=== PATIENT | female | born 1980 | race Caucasian/White ===

== ENCOUNTER 2016-05-24 08:36 | Emergency (ER) | payer MEDICAID ==
[2016-05-24 08:40] VITALS: BP 133/85; PULSE 98; RESP 18; TEMP 98.3; O2SAT 100
[2016-05-24] MEDS ORDERED: Sodium Chloride 0.9% 1,000 ML IV STA (09:03)
[2016-05-24] MEDS ORDERED: Sodium Chloride 0.9% 1,000 ML ONE (09:11)
[2016-05-24 09:30] LABS: RBC URINE 5 /hpf (0-3); URINE BILIRUBIN NEGATIVE (NEGATIVE); URINE BLOOD 2+ (NEGATIVE); URINE COLOR Yellow (YELLOW); URINE GLUCOSE (UA) NORMAL (Normal); URINE KETONE NEGATIVE (NEGATIVE); URINE LEUKOCYTE ESTERASE NEG Leu/uL (Negative); URINE PROTEIN 1+ mg/dL (NEGATIVE); WBC URINE 3 /hpf (0-5)
[2016-05-24 09:41] LABS: BASO % 0.5 % (0.0-2.0); EOS # 0.1 K/uL (0.0-0.7); EOS % 1.9 % (0.0-4.0); HEMATOCRIT 38.1 % (34.0-47.0); LYMPH # 1.3 K/uL (1.0-4.3); LYMPH % 22.7 % (20.0-40.0); MEAN CELL VOLUME 82.3 fL (81.0-99.0); MEAN CORPUSCULAR HEMOGLOBIN 26.9 pg (27.0-31.0); MEAN CORPUSCULAR HGB CONC 32.7 g/dL (33.0-37.0); MEAN PLATELET VOLUME 8.9 fL (7.2-11.7); MONO # 0.3 K/uL (0.0-0.8); MONO % 5.9 % (0.0-10.0); RED CELL DISTRIBUTION WIDTH 13.1 % (11.5-14.5); WHITE BLOOD COUNT 5.8 K/uL (4.8-10.8)
[2016-05-24 09:44] LABS: CHLORIDE 100 mmol/L (98-107)
[2016-05-24 09:45] LABS: SODIUM 140 mmol/L (132-148)
[2016-05-24 09:47] LABS: ALB/GLOB RATIO 1.2 (1.0-2.1); ALKALINE PHOSPHATASE 43 U/L (38-126); ALT/SGPT 17 U/L (9-52); AST/SGOT 19 U/L (14-36); BILIRUBIN,TOTAL 0.7 mg/dL (0.2-1.3); BLOOD UREA NITROGEN 4 mg/dL (7-17); CALCIUM 8.6 mg/dl (8.6-10.4); CARBON DIOXIDE 23 mmol/L (22-30); GFR AFRICAN-AMERICAN > 60; GLUCOSE,RANDOM 91 mg/dL (65-105)
[2016-05-24 09:59] LABS: POTASSIUM 3.7 mmol/L (3.6-5.2)
--- NOTE | 2016-05-24 11:01 | US ---
HISTORY: vaginal bleeding, ? COMPARISON: None available. TECHNIQUE: Transabdominal and endovaginal ultrasound examination of the pelvis was performed. FINDINGS: LMP: 03/03/2016 UTERUS: Measures 11.1 x 6 x 7.1 cm. Normal in size and appearance. No fibroid or other mass lesion seen. ENDOMETRIUM: There is cystic structure in the endometrial cavity measures 1.7 x 0.8 x 1.6 centimeters with NST 1.34 which corresponding to gestational age of 5 weeks 4 days. No pole or yolk sac seen in this study. CERVIX: No cervical abnormality identified. RIGHT OVARY: Measures 2.9 x 2 x 2.4 cm. No solid mass. Normal flow. LEFT OVARY: Measures 3.7 x 2.7 x 4.1 cm. No solid mass. Normal flow. There is a small cyst seen at the there if the ovary measures 3 x 2.1 x 2.4 centimeter. FREE FLUID: No significant free fluid noted. OTHER FINDINGS: None. IMPRESSION: Cystic structure in the endometrium may represent gestational sac. No evidence of pole or yolk sac. Continuous follow-up reassessment is recommended. Small cyst seen at the left ovary measures 3 centimeter.
--- NOTE | 2016-05-24 11:32 | C.PDOC ---
Time Seen by Provider: 05/24/16 09:00 Chief Complaint (Nursing): Female Genitourinary Past Medical History Vital Signs: Last Vital Signs Temp 98.3 F 05/24/16 08:37 Pulse 98 H 05/24/16 08:37 Resp 18 05/24/16 08:37 BP 133/85 05/24/16 08:37 Pulse Ox 100 05/24/16 08:37 - Medical History PMH: Asthma, HTN (During ), Migraine - Social History Hx Tobacco Use: Yes Hx Alcohol Use: Yes Hx Substance Use: No - Immunization History Hx Tetanus Toxoid Vaccination: No Hx Influenza Vaccination: No Hx Pneumococcal Vaccination: No ED Course And Treatment - Laboratory Results Result Diagrams: 05/24/16 09:30 05/24/16 09:30 O2 Sat by Pulse Oximetry: 100 Disposition - Disposition Disposition: HOME/ ROUTINE Disposition Time: 11:29 Condition: STABLE Additional Instructions: Follow up with your OBGYN within 1-2 days. Return to ED if feel worse. Return to ED in 2-3 days to repeat beta HCG and to repeat pelvic US. Prescriptions: Vits #93/Iron Fum/FA [ Formula Tablet] 1 each PO DAILY #30 tablet Instructions: Threatened Miscarriage (ED) - Clinical Impression Clinical Impression: Threatened in early
--- NOTE | 2016-05-24 11:33 | C.PDOC ---
History Of Present Illness 35 year old female presents to the ED with complaints of vaginal spotting and lower abdominal cramping since 03:00. Patient states her LMP was 3 months ago and notes her period is irregular. She took a test at home which was positive and denies vomiting, urinary symptoms, back pain, or any other complaints at this time. Time Seen by Provider: 05/24/16 09:00 Chief Complaint (Nursing): Female Genitourinary History Per: Patient History/Exam Limitations: no limitations Onset/Duration Of Symptoms: Hrs Current Symptoms Are (Timing): Still Present Severity: Mild Quality Of Discomfort: Cramping Associated Symptoms: denies: Fever, Chills, Nausea, Vomiting, Diarrhea, Back Pain, Urinary Symptoms Abnormal Vaginal Bleeding: Yes Past Medical History Reviewed: Historical Data, Nursing Documentation, Vital Signs Vital Signs: Last Vital Signs Temp 98.3 F 05/24/16 08:37 Pulse 98 H 05/24/16 08:37 Resp 18 05/24/16 08:37 BP 133/85 05/24/16 08:37 Pulse Ox 100 05/24/16 11:39 - Medical History PMH: Asthma, HTN (During ), Migraine Family History: States: Unknown Family Hx - Social History Hx Tobacco Use: Yes Hx Alcohol Use: Yes Hx Substance Use: No - Immunization History Hx Tetanus Toxoid Vaccination: No Hx Influenza Vaccination: No Hx Pneumococcal Vaccination: No Review Of Systems Except As Marked, All Systems Reviewed And Found Negative. Constitutional: Negative for: Fever, Chills Gastrointestinal: Positive for: Abdominal Pain. Negative for: Vomiting, Diarrhea Genitourinary: Positive for: Vaginal Bleeding. Negative for: Dysuria, Frequency Musculoskeletal: Negative for: Back Pain Physical Exam - Physical Exam Appears: Non-toxic, No Acute Distress Skin: Normal Color, Warm, Dry Head: Atraumatic, Normacephalic Eye(s): bilateral: Normal Inspection Oral Mucosa: Moist Chest: Symmetrical, No Deformity Cardiovascular: Rhythm Regular, No Murmur Respiratory: Normal Breath Sounds, No Accessory Muscle Use, No Rales, No Rhonchi , No Wheezing Gastrointestinal/Abdominal: Soft, Tenderness (+Suprapubic tenderness slightly greater to the right), No Distention, No Guarding, No Rebound Extremity: Normal ROM, No Deformity Neurological/Psych: Oriented x3, Normal Speech, Normal Cognition ED Course And Treatment - Laboratory Results Result Diagrams: 05/24/16 09:30 05/24/16 09:30 O2 Sat by Pulse Oximetry: 100 (Room air) Pulse Ox Interpretation: Normal - CT Scan/US Preg 1st Trimester US Other Rad Studies (CT/US): Read By Radiologist, Radiology Report Reviewed CT/US Interpretation: Accession No. : [id number]. Patient Name / ID : NIKHIL LEVY / [id number]. Exam Date : 05/24/2016 09:36:14 ( Approved ). Study Comment : Sex / Age : F / 35Y. Creator : Amy Otero. Dictator : Amy Otero. Lending Advisor : [employer] Attendant : Amy Otero. Approver2 : Report Date : 05/24/2016 10:59:09. My Comment : . HISTORY: vaginal bleeding, ? . COMPARISON: None available. TECHNIQUE: Transabdominal and endovaginal ultrasound examination of the pelvis was performed. FINDINGS: LMP: 03/03/2016. UTERUS: Measures 11.1 x 6 x 7.1 cm. Normal in size and appearance. No fibroid or other mass lesion seen. ENDOMETRIUM: There is cystic structure in the endometrial cavity measures 1.7 x 0.8 x 1.6 centimeters with NST 1.34 which corresponding to gestational age of 5 weeks 4 days. No pole or yolk sac seen in this study. CERVIX: No cervical abnormality identified. RIGHT OVARY: Measures 2.9 x 2 x 2.4 cm. No solid mass. Normal flow. LEFT OVARY: Measures 3.7 x 2.7 x 4.1 cm. No solid mass. Normal flow. There is a small cyst seen at the there if the ovary measures 3 x 2.1 x 2.4 centimeter. FREE FLUID: No significant free fluid noted. OTHER FINDINGS: None. IMPRESSION: Cystic structure in the endometrium may represent gestational sac. No evidence of pole or yolk sac. Continuous follow-up reassessment is recommended. Small cyst seen at the left ovary measures 3 centimeter. Progress Note: 1st Trimester US, Blood work, and Urinalysis ordered and reviewed. Patient treated with IV fluids. Results discussed with patient. Rx given and patient advised to follow up with her [employer]. Disposition - Disposition Disposition: HOME/ ROUTINE Disposition Time: 11:29 Condition: STABLE Additional Instructions: Follow up with your OBGYN within 1-2 days. Return to ED if feel worse. Return to ED in 2-3 days to repeat beta HCG and to repeat pelvic US. Prescriptions: Vits #93/Iron Fum/FA [ Formula Tablet] 1 each PO DAILY #30 tablet Instructions: Threatened Miscarriage (ED) - Clinical Impression Clinical Impression: Threatened in early - PA / VISUAL LEAD / Resident Statement MD/DO has reviewed & agrees with the documentation as recorded. - Scribe Statement The provider has reviewed the documentation as recorded by the Scribe Hugo Babcock. All medical record entries made by the Scribe were at my direction and personally dictated by me. I have reviewed the chart and agree that the record accurately reflects my personal performance of the history, physical exam, medical decision making, and the department course for this patient. I have also personally directed, reviewed, and agree with the discharge instructions and disposition.
== END 2016-05-24 11:52 | disposition home or self-care (01) ==
LOC: C.ER 08:36
DX: O20.0 Threatened abortion (principal); Z3A.01 Less than 8 weeks gestation of pregnancy

== ENCOUNTER 2016-06-16 16:15 | Emergency (ER) | payer MEDICAID ==
[2016-06-16 16:24] VITALS: RESP 18; O2SAT 100
[2016-06-16] MEDS ORDERED: Sodium Chloride 0.9% 1,000 ML IV ONE (16:37)
[2016-06-16 17:14] LABS: BASO # 0.1 K/uL (0.0-0.2); BASO % 0.6 % (0.0-2.0); EOS # 0.2 K/uL (0.0-0.7); EOS % 1.8 % (0.0-4.0); HEMATOCRIT 37.5 % (34.0-47.0); LYMPH # 1.8 K/uL (1.0-4.3); LYMPH % 19.5 % (20.0-40.0); MEAN CELL VOLUME 82.5 fL (81.0-99.0); MEAN CORPUSCULAR HEMOGLOBIN 26.6 pg (27.0-31.0); MEAN CORPUSCULAR HGB CONC 32.3 g/dL (33.0-37.0); MEAN PLATELET VOLUME 9.2 fL (7.2-11.7); MONO # 0.5 K/uL (0.0-0.8); MONO % 5.1 % (0.0-10.0); RED CELL DISTRIBUTION WIDTH 12.9 % (11.5-14.5); WHITE BLOOD COUNT 9.2 K/uL (4.8-10.8)
[2016-06-16 17:20] LABS: RBC URINE 570 /hpf (0-3); URINE BACTERIA FEW (<OCC); URINE BILIRUBIN NEGATIVE (NEGATIVE); URINE BLOOD 3+ (NEGATIVE); URINE GLUCOSE (UA) NORMAL (Normal); URINE KETONE TRACE mg/dL (NEGATIVE); URINE LEUKOCYTE ESTERASE 1+ Leu/uL (Negative); URINE PROTEIN 2+ mg/dL (NEGATIVE); WBC URINE 41 /hpf (0-5)
[2016-06-16 17:21] LABS: CHLORIDE 103 mmol/L (98-107); URINE COLOR YELLOW (YELLOW)
[2016-06-16 17:22] LABS: POTASSIUM 3.7 mmol/L (3.6-5.2); SODIUM 141 mmol/L (132-148)
[2016-06-16 17:24] LABS: ALB/GLOB RATIO 1.3 (1.0-2.1); BILIRUBIN,TOTAL 0.5 mg/dL (0.2-1.3); CARBON DIOXIDE 25 mmol/L (22-30); GFR AFRICAN-AMERICAN > 60; TOTAL PROTEIN 7.9 g/dL (6.3-8.3)
[2016-06-16 17:25] LABS: ALKALINE PHOSPHATASE 47 U/L (38-126); ALT/SGPT 9 U/L (9-52); AST/SGOT 19 U/L (14-36); BLOOD UREA NITROGEN 10 mg/dL (7-17); CALCIUM 8.6 mg/dl (8.6-10.4); GLUCOSE,RANDOM 107 mg/dL (65-105)
--- NOTE | 2016-06-16 17:51 | C.PDOC ---
History Of Present Illness 35 year old female, P:2 (as per her currently 12 weeks ,), presents to the ED with complaints of abdominal/pelvic cramping and vaginal bleeding starting earlier today. Patient states she also has a headache. She denies nausea, vomiting, diarrhea, dysuria, fever/chills, back pain. Time Seen by Provider: 06/16/16 16:33 Chief Complaint (Nursing): Female Genitourinary History Per: Patient History/Exam Limitations: no limitations Onset/Duration Of Symptoms: Hrs Current Symptoms Are (Timing): Still Present Severity: Mild Quality Of Discomfort: Cramping Associated Symptoms: denies: Fever, Chills, Nausea, Vomiting, Back Pain Abnormal Vaginal Bleeding: Yes Past Medical History Reviewed: Historical Data, Nursing Documentation, Vital Signs Vital Signs: Last Vital Signs Temp 98.1 F 06/16/16 16:20 Pulse 83 06/16/16 16:20 Resp 18 06/16/16 16:20 BP 120/84 06/16/16 16:20 Pulse Ox 100 06/16/16 18:54 - Medical History PMH: Asthma, HTN (During ), Migraine Family History: States: No Known Family Hx - Social History Hx Tobacco Use: Yes Hx Alcohol Use: Yes Hx Substance Use: No - Immunization History Hx Tetanus Toxoid Vaccination: No Hx Influenza Vaccination: No Hx Pneumococcal Vaccination: No Review Of Systems Except As Marked, All Systems Reviewed And Found Negative. Constitutional: Negative for: Fever, Chills Cardiovascular: Negative for: Chest Pain, Palpitations Respiratory: Negative for: Cough, Shortness of Breath Gastrointestinal: Positive for: Abdominal Pain (+Abdominal cramping). Negative for: Nausea, Vomiting, Diarrhea Genitourinary: Positive for: Vaginal Bleeding Neurological: Positive for: Headache Physical Exam - Physical Exam Appears: Well, Non-toxic, No Acute Distress Skin: Normal Color, Warm, Dry Head: Normacephalic Eye(s): bilateral: Normal Inspection Oral Mucosa: Moist Neck: Supple Cardiovascular: Rhythm Regular Respiratory: Normal Breath Sounds, No Accessory Muscle Use, No Rales, No Rhonchi , No Wheezing Gastrointestinal/Abdominal: Bowel Sounds, Soft, Tenderness (+Mild suprapubic TTP , (-) McBurney's), No Distention, No Guarding, No Rebound Back: No CVA Tenderness Extremity: Normal ROM, No Pedal Edema, No Deformity Neurological/Psych: Oriented x3 ED Course And Treatment - Laboratory Results Result Diagrams: 06/16/16 17:10 06/16/16 17:10 O2 Sat by Pulse Oximetry: 100 (Room air) Pulse Ox Interpretation: Normal Progress Note: OB Transvaginal US, Blood work, and Urinalysis ordered and reviewed. Patient given IV NS bolus, and requested Tylenol (PO given). Blood type A+, no rhogham needed. Disposition - Disposition Disposition Time: 18:00 Condition: STABLE - Clinical Impression Clinical Impression: Vaginal bleeding in - Scribe Statement The provider has reviewed the documentation as recorded by the Scribe Hugo Babcock. Provider Attestation: All medical record entries made by the Scribe were at my direction and personally dictated by me. I have reviewed the chart and agree that the record accurately reflects my personal performance of the history, physical exam, medical decision making, and the department course for this patient. I have also personally directed, reviewed, and agree with the discharge instructions and disposition. Physician Patient Turnover Patient Signed Over To: Chan Oropeza Handoff Comments: Pending reassessment, ultrasound results
[2016-06-16 19:34] VITALS: BP 112/78; PULSE 71; TEMP 98.4
--- NOTE | 2016-06-17 08:43 | US ---
Pelvic ultrasound History: Vaginal bleeding, . Comparison: Comparison is made to prior ultrasound from 05/24/2016. Technique: Transvaginal and transabdominal ultrasonography of the pelvis. Findings: The uterus is anteverted and measures approximately 10 x 5.2 x 5.6 centimeters. No intrauterine gestational sac identified. Extremely heterogeneous endometrium. The endometrium measures approximately 0.89 centimeters. The cervix appears closed and measures approximately 3.7 centimeters. The endometrium is heterogeneous and demonstrates vascular flow. No significant free fluid in the cul-de-sac. The right ovary measures 3.2 x 2.2 x 2.6 centimeters. The left ovary measures 3.5 x 2.4 x 3.2 centimeters. Prominent follicle versus cyst measuring 1.8 centimeters on the left. Doppler flow seen in both ovaries. Impression: No intrauterine gestational sac identified. Lower uterine segment/cervical heterogeneity could represent blood products. In the setting of positive beta HCG, differential diagnosis of versus retained products of conception should be considered. Close interval followup ultrasonography recommended. Follow-up with beta HCG levels also recommended. Please note that this report is in general agreement with the preliminary report provided by [facility].
== END 2016-06-16 19:36 | disposition home or self-care (01) ==
LOC: C.ER 16:15
DX: O20.8 Other hemorrhage in early pregnancy (principal); Z3A.12 12 weeks gestation of pregnancy
CPT/HCPCS: 76830; 76856; 80053; 81001; 84702; 85025; 86850; 86900; 87086; 96360; 99285; J7040

== ENCOUNTER 2016-10-07 14:55 | Emergency (ER) | payer MEDICAID ==
[2016-10-07 15:03] VITALS: RESP 18; TEMP 99.2
[2016-10-07] MEDS ORDERED: Sodium Chloride 0.9% 1,000 ML IV STA (16:48)
[2016-10-07] MEDS ORDERED: Morphine 4 MG/ML VIAL ONE (17:15)
[2016-10-07] MEDS ORDERED: Sodium Chloride 0.9% 1,000 ML ONE (17:16)
[2016-10-07 17:20] LABS: BASO # 0.1 K/uL (0.0-0.2); BASO % 0.8 % (0.0-2.0); EOS # 0.1 K/uL (0.0-0.7); HEMATOCRIT 37.3 % (34.0-47.0); LYMPH # 1.7 K/uL (1.0-4.3); LYMPH % 17.4 % (20.0-40.0); MEAN CELL VOLUME 83.4 fL (81.0-99.0); MEAN CORPUSCULAR HGB CONC 33.6 g/dL (33.0-37.0); MEAN PLATELET VOLUME 8.7 fL (7.2-11.7); MONO # 0.5 K/uL (0.0-0.8); MONO % 5.4 % (0.0-10.0); NRBC % 0.1 % (0.0-2.0); RED CELL DISTRIBUTION WIDTH 13.9 % (11.5-14.5); WHITE BLOOD COUNT 9.7 K/uL (4.8-10.8)
[2016-10-07 17:28] LABS: CHLORIDE 104 mmol/L (98-107); RBC URINE 1 /hpf (0-3); SODIUM 134 mmol/L (132-148); URINE BACTERIA RARE (<OCC); URINE BILIRUBIN NEGATIVE (NEGATIVE); URINE BLOOD NEGATIVE (NEGATIVE); URINE COLOR Yellow (YELLOW); URINE GLUCOSE (UA) NORMAL (Normal); URINE KETONE NEGATIVE (NEGATIVE); URINE LEUKOCYTE ESTERASE NEG Leu/uL (Negative); URINE PROTEIN NEGATIVE (NEGATIVE); URINE UROBILINOGEN NORMAL mg/dL (0.2-1.0)
[2016-10-07 17:29] LABS: POTASSIUM 3.6 mmol/L (3.6-5.2)
[2016-10-07 17:31] LABS: ALB/GLOB RATIO 1.1 (1.0-2.1); ALKALINE PHOSPHATASE 42 U/L (38-126); AST/SGOT 20 U/L (14-36); BILIRUBIN,TOTAL 0.5 mg/dL (0.2-1.3); BLOOD UREA NITROGEN 5 mg/dL (7-17); CARBON DIOXIDE 19 mmol/L (22-30); GFR AFRICAN-AMERICAN > 60; TOTAL PROTEIN 7.6 g/dL (6.3-8.3)
[2016-10-07 17:32] LABS: ALT/SGPT 26 U/L (9-52); CALCIUM 8.8 mg/dl (8.6-10.4); GLUCOSE,RANDOM 73 mg/dL (65-105)
--- NOTE | 2016-10-07 18:04 | US ---
OB , limited Comparison: Pelvis/transvaginal ultrasound performed 06/16/16 Technique: Real-time ultrasound was performed through the pelvis. Findings: There is a single living fetus in cephalic presentation. Anterior placenta. The placenta is not previa. There are no adnexal masses or cysts evident. Cervix length measures approximately 3.1 cm. Measurements and calculations: Fetus has a composite sonographic age of 15 weeks 3 days. This calculation is based on the biparietal diameter, head circumference, abdominal circumference, and femur length. Estimated heart rate 127.8 beats per min. Impression: Single living fetus with a composite sonographic age of 15 weeks 3 days. Estimated heart rate 127.8 beats per min. Advise an anomaly screen at 16-18 weeks gestational age.
--- NOTE | 2016-10-07 18:34 | C.PDOC ---
History Of Present Illness 36 y/o female 17 weeks presents to ED with complaints of headache for 3 -4 days and pelvic cramping with associated vaginal bleeding for 3 days. Patient states the headache is similar to recurrent migraines that normally resolved with Tylenol but today didn't which prompted visit to ED today. Patient reports she had previous vaginal bleeding and was seen at another ER where an ultrasound was done that showed no abnormalities and bleeding stopped spontaneously but recurred 3 days ago. Patient denies nausea, vomiting, diarrhea , back pain, urinary symptoms, injury or any other complaints at this time. Time Seen by Provider: 10/07/16 16:22 Chief Complaint (Nursing): Female Genitourinary History Per: Patient History/Exam Limitations: no limitations Onset/Duration Of Symptoms: Days Current Symptoms Are (Timing): Still Present Quality Of Discomfort: Cramping Past Medical History Reviewed: Historical Data, Nursing Documentation, Vital Signs Vital Signs: Last Vital Signs Temp 99.2 F 10/07/16 15:00 Pulse 80 10/07/16 18:42 Resp 18 10/07/16 18:42 BP 113/73 10/07/16 18:42 Pulse Ox 99 10/07/16 18:44 - Medical History PMH: Asthma, HTN (During ), Migraine Family History: States: Unknown Family Hx - Social History Hx Tobacco Use: Yes Hx Alcohol Use: Yes Hx Substance Use: No - Immunization History Hx Tetanus Toxoid Vaccination: No Hx Influenza Vaccination: No Hx Pneumococcal Vaccination: No Review Of Systems Except As Marked, All Systems Reviewed And Found Negative. Constitutional: Negative for: Fever, Chills Gastrointestinal: Negative for: Nausea, Vomiting, Diarrhea Genitourinary: Positive for: Vaginal Bleeding, Pelvic Pain. Negative for: Dysuria, Frequency Musculoskeletal: Negative for: Back Pain Skin: Negative for: Rash Neurological: Positive for: Headache. Negative for: Weakness, Numbness Physical Exam - Physical Exam Appears: Non-toxic, No Acute Distress Skin: Normal Color, Warm, Dry, No Rash Head: Atraumatic, Normacephalic Eye(s): bilateral: Normal Inspection Oral Mucosa: Moist Neck: Normal ROM, Supple Chest: Symmetrical Cardiovascular: Rhythm Regular Respiratory: Normal Breath Sounds, No Rales, No Rhonchi, No Wheezing Gastrointestinal/Abdominal: Tenderness (To suprapubic area), No Guarding, No Rebound Extremity: Normal ROM, Capillary Refill (<2 seconds) Neurological/Psych: Oriented x3, Normal Speech ED Course And Treatment - Laboratory Results Result Diagrams: 10/07/16 17:14 10/07/16 17:14 O2 Sat by Pulse Oximetry: 99 (RA) Pulse Ox Interpretation: Normal - CT Scan/US OB Pelvic Other Rad Studies (CT/US): Interpreted By Me, Read By Radiologist, Radiology Report Reviewed CT/US Interpretation: OB , limited. Comparison: Pelvis/transvaginal ultrasound performed 06/16/16. Technique: Real-time ultrasound was performed through the pelvis. Findings: There is a single living fetus in cephalic presentation. Anterior placenta. The placenta is not previa. There are no adnexal masses or cysts evident. Cervix length measures approximately 3.1 cm. Measurements and calculations: Fetus has a composite sonographic age of 15 weeks 3 days. This calculation is based on the biparietal diameter, head circumference, abdominal circumference, and femur length. Estimated heart rate 127.8 beats per min. Impression: Single living fetus with a composite sonographic age of 15 weeks 3 days. Estimated heart rate 127.8 beats per min. Advise an anomaly screen at 16-18 weeks gestational age. Progress Note: On re-evaluation patient feels better and wants to be d/c home. Patient now stating she wants to terminate her and is asking for referral. Medical Decision Making Medical Decision Making: Plan: * Pelvic Ultrasound * Blood work Disposition - Disposition Disposition: HOME/ ROUTINE Disposition Time: 18:42 Condition: STABLE Additional Instructions: Follow up with PMD/OBGYN within 1-2 days. Return to ED if feel worse. Instructions: Threatened Miscarriage (ED), General Headache (ED) Forms: [employer] (Bengali), Work Excuse - Clinical Impression Clinical Impression: Threatened in second trimester, Headache - Scribe Statement The provider has reviewed the documentation as recorded by the Mandi Ko All medical record entries made by the Mylesibbren were at my direction and personally dictated by me. I have reviewed the chart and agree that the record accurately reflects my personal performance of the history, physical exam, medical decision making, and the department course for this patient. I have also personally directed, reviewed, and agree with the discharge instructions and disposition.
[2016-10-07 18:42] VITALS: BP 113/73; PULSE 80
[2016-10-07 18:45] VITALS: O2SAT 99
== END 2016-10-07 19:07 | disposition home or self-care (01) ==
LOC: C.ER 14:55
DX: O20.0 Threatened abortion (principal); O26.892 Other specified pregnancy related conditions, second trimester; R51 Headache; Z3A.15 15 weeks gestation of pregnancy
CPT/HCPCS: 76815; 80053; 81001; 85025; 85610; 85730; 86850; 86900; 96361; 96374; 96375; 99284; J2270; J2765; J7040